=== PATIENT | male | born 1980 | race African-American/Black ===

== ENCOUNTER 2018-08-07 17:56 | Emergency (ER) | payer SELFPAY ==
[2018-08-07] MEDS ORDERED: KETOROLAC TROMETHAMINE 60 MG/2 ML SDV IM ONE (18:53)
--- NOTE | 2018-08-07 18:58 | ER Document Report ---
ED General - General Chief Complaint: Swelling Stated Complaint: SWOLLEN HAND AND FOOT/ARM NUMBNESS Time Seen by Provider: 08/07/18 18:47 Information source: Patient Notes: Chief complaint: Right hand pain History of complain:( obtained from----patient) 37 years old male eats lots of chocolate, presents today with pain over the right metacarpophalangeal joint particularly the middle and also right big toe pain and swelling for the last few days. Denies any fever chills or other constitutional symptoms Onset: As above Duration: Last few days Severity: Mild to moderate Quality: Achy Context: Unknown Exacerbating factor and relieving factors: None REVIEW OF SYSTEMS: CONSTITUTIONAL : Denies fever, chills, or sweats. Denies recent illness. EENT: Denies eye, ear, throat, or mouth pain or symptoms. Denies nasal or sinus congestion or discharge. Denies throat, tongue, or mouth swelling or difficulty swallowing. CARDIOVASCULAR: Denies chest pain. Denies palpitations or racing or irregular heart beat. Denies ankle edema. RESPIRATORY: Denies cough, cold, or chest congestion. Denies shortness of breath, difficulty breathing, or wheezing. GASTROINTESTINAL: Denies distention. Denies nausea, vomiting, or diarrhea. Denies blood in vomitus, stools, or per rectum. Denies black, tarry stools. Denies constipation. GENITOURINARY: Denies difficulty urinating, painful urination, burning, mikal quency, blood in urine, or discharge. FEMALE GENITOURINARY: Denies vaginal bleeding, heavy or abnormal periods, irregular periods. Denies vaginal discharge or odor. MUSCULOSKELETAL: Denies back or neck pain or stiffness. Denies joint pain or swelling. SKIN: Denies rash, lesions or sores. HEMATOLOGIC : Denies easy bruising or bleeding. LYMPHATIC: Denies swollen, enlarged glands. NEUROLOGICAL: Denies confusion or altered mental status. Denies passing out or loss of consciousness. Denies dizziness or lightheadedness. Denies headache. Denies weakness or paralysis or loss of use of either side. Denies problems with gait or speech. Denies sensory loss, numbness, or tingling. Denies seizures. PSYCHIATRIC: Denies anxiety or stress. Denies depression, suicidal ideation, or homicidal ideation. ALL OTHER SYSTEMS REVIEWED AND NEGATIVE. PHYSICAL EXAMINATION: GENERAL: Well-appearing, well-nourished and in no acute distress. HEAD: Atraumatic, normocephalic. EYES: Pupils equal round and reactive to light, extraocular movements intact, conjunctiva are normal. Examination of genitals-deferred Musculoskeletal: Normal range of motion, no pitting or edema. No cyanosis. Examination of the right hand the middle metacarpophalangeal joint shows swelling warm and tender to touch. Right foot metatarsophalangeal joints show slight swelling. And is warm to touch. SKIN: Warm, Dry, normal turgor, no rashes or lesions noted. Dictation was performed using [employer] voice recognition software TRAVEL OUTSIDE OF THE [place] IN LAST 30 DAYS: No - HPI Notes: Dictated - Related Data Allergies/Adverse Reactions: No Known Allergies Allergy (Verified 08/07/18 18:47) Past Medical History - Social History Smoking Status: Never Smoker Frequency of alcohol use: None Drug Abuse: None Lives with: Family Family History: Reviewed & Not Pertinent Patient has suicidal ideation: No Patient has homicidal ideation: No Renal/ Medical History: Denies: Hx Peritoneal Dialysis Review of Systems - Review of Systems Notes: Dictated Physical Exam - Vital signs Vitals: Temp Pulse Resp BP Pulse Ox 98.4 F 66 14 154/83 H 100 08/07/18 18:09 08/07/18 18:09 08/07/18 18:09 08/07/18 18:09 08/07/18 18:09 - Notes Notes: Dictated Course - Re-evaluation Re-evalutation: 08/07/18 18:55 He was explained what his gout - Vital Signs Vital signs: Temp Pulse Resp BP Pulse Ox 98.4 F 66 14 154/83 H 100 08/07/18 18:09 08/07/18 18:09 08/07/18 18:09 08/07/18 18:09 08/07/18 18:09 Discharge - Discharge Clinical Impression: Gout attack Qualifiers: Gout site: hand Gout etiology: unspecified cause Laterality: right Qualified Code(s): M10.9 - Gout, unspecified Condition: Fair Disposition: HOME, SELF-CARE Instructions: Gout Diet ([facility]), Gout ([facility]) Prescriptions: Naproxen 500 mg PO BID #10 tablet Prednisone 10 mg PO ASDIR PRN 6 Days #1 tab.ds.pk PRN Reason:
[2018-08-07 19:30] VITALS: BP 138/86
== END 2018-08-07 19:30 | disposition home or self-care (01) ==
LOC: ER 17:56
DX: M10.9 Gout, unspecified (principal)
CPT/HCPCS: 99283

== ENCOUNTER 2018-10-24 13:44 | Emergency (ER) | payer SELFPAY ==
[2018-10-24] MEDS ORDERED: DIPH/PERTUSS(ACELL)/TETANUS VAC/PF 0.5 ML SYR (>=10YO) IM ONE (14:53)
--- NOTE | 2018-10-24 15:30 | ER Document Report ---
HPI - HPI Time Seen by Provider: 10/24/18 14:27 Pain Level: 4 Notes: Patient is a 38-year-old male presenting to the emergency department with request for updated tetanus vaccination. 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 Patient states that 1 of these occurred today and 1 of these occurred yesterday. He is also requesting that we check his glucose because he is concerned he may be diabetic. Patient has no complaints of excessive thirst or excessive urination and has no family history of diabetes. - EENT EENT: DENIES: Sore Throat, Ear Pain, Eye problems - NEURO Neurology: DENIES: Headache, Weakness, Vision blurred, Dizzinesss / Vertigo - CARDIOVASCULAR Cardiovascular: DENIES: Chest pain - RESPIRATORY Respiratory: DENIES: Trouble Breathing, Coughing - GASTROINTESTINAL Gastrointestinal: DENIES: Abdominal Pain, Black / Bloody Stools - URINARY Urinary: DENIES: Dysuria, Urgency - REPRODUCTIVE Reproductive: DENIES: :, Postmenopausal, Abnormal bleeding / discharge - MUSCULOSKELETAL Musculoskeletal: REPORTS: Extremity pain - bilateral hand pain Past Medical History - General Information source: Patient - Social History Smoking Status: Never Smoker Frequency of alcohol use: None Drug Abuse: None Family History: Reviewed & Not Pertinent Patient has suicidal ideation: No Patient has homicidal ideation: No - Medical History Medical History: Negative Renal/ Medical History: Denies: Hx Peritoneal Dialysis Surgical Hx: Negative - Immunizations Hx Diphtheria, Pertussis, Tetanus Vaccination: Yes Vertical Provider Document - CONSTITUTIONAL Notes: PHYSICAL EXAMINATION: GENERAL: Well-appearing, well-nourished and in no acute distress. HEAD: Atraumatic, normocephalic. EYES: Pupils equal round extraocular movements intact, conjunctiva are normal. ENT: Nares patent NECK: Normal range of motion LUNGS: No respiratory distress Musculoskeletal: Normal range of motion NEUROLOGICAL: Normal speech, normal gait. PSYCH: Normal mood, normal affect. SKIN: Warm, Dry, normal turgor, no rashes or lesions noted. Very superficial puncture wounds noted to both of patient's hands on the palm. There is one puncture wound on each side and again this is very superficial. There is no surrounding erythema. - INFECTION CONTROL TRAVEL OUTSIDE OF THE [place] IN LAST 30 DAYS: No Course - Re-evaluation Re-evalutation: Patient's Tdap was updated. Patient did have a Accu-Chek done per patient's request and this was found to be within normal limits. Patient will be discharged home in stable condition. He does understand ED return precautions to include any signs of infection at the puncture wounds on his hand. - Vital Signs Vital signs: Temp Pulse Resp BP Pulse Ox 98.1 F 74 18 145/82 H 98 10/24/18 14:04 10/24/18 14:04 10/24/18 14:04 10/24/18 14:04 10/24/18 14:04 Discharge - Discharge Clinical Impression: Need for Tdap vaccination Condition: Stable Disposition: HOME, SELF-CARE Additional Instructions: Your tetanus shot was updated today. Please decrease your salt intake and increase your water intake. This may help with your swelling in your hands and feet. Please consider following up with the [facility] and keep a close watch on your blood pressure. Forms: Return to Work Referrals: [facility] [Provider Group] - Follow up as needed
[2018-10-24 16:18] VITALS: BP 136/89
== END 2018-10-24 16:20 | disposition home or self-care (01) ==
LOC: ER 13:44
DX: Z23 Encounter for immunization (principal); R63.1 Polydipsia; M79.641 Pain in right hand; M79.642 Pain in left hand
CPT/HCPCS: 82962; 90471; 90715; 99283

== ENCOUNTER 2019-02-10 10:00 | Emergency (ER) | payer OTHER ==
[2019-02-10 10:04] VITALS: BP 137/73
[2019-02-10] MEDS ORDERED: IBUPROFEN 800 MG TABLET PO ONE (10:20)
[2019-02-10] MEDS ORDERED: PENICILLIN V POTASSIUM 500 MG TABLET PO ONE (10:20)
--- NOTE | 2019-02-10 10:22 | ER Document Report ---
HPI - HPI Patient complains to provider of: dental pain Time Seen by Provider: 02/10/19 10:13 Onset: Other - 4 days Onset/Duration: Persistent Quality of pain: Achy Pain Level: 5 Context: Patient presents complaining of dental pain to left lower jaw for the past 4 days. Patient complains of some swelling to the left jaw. No fever. No difficulty breathing or swallowing. Associated Symptoms: Other - dental pain. denies: Earache, Fever, Headache Exacerbated by: Denies Relieved by: Denies Similar symptoms previously: No Recently seen / treated by doctor: No - ROS ROS below otherwise negative: Yes Systems Reviewed and Negative: Yes All other systems reviewed and negative - CONSTITUTIONAL Constitutional: DENIES: Fever, Chills - EENT EENT: DENIES: Sore Throat, Ear Pain Notes: dental pain - NEURO Neurology: REPORTS: Headache. DENIES: Vision blurred - RESPIRATORY Respiratory: DENIES: Trouble Breathing, Coughing - GASTROINTESTINAL Gastrointestinal: DENIES: Patient vomiting - DERM Skin Color: Normal Skin Problems: None Past Medical History - General Information source: Patient - Social History Smoking Status: Never Smoker Chew tobacco use (# tins/day): No Frequency of alcohol use: Occasional Drug Abuse: None Occupation: construction Lives with: Family Family History: Reviewed & Not Pertinent Patient has suicidal ideation: No Patient has homicidal ideation: No - Medical History Medical History: Negative Renal/ Medical History: Denies: Hx Peritoneal Dialysis Past Surgical History: Reports: Hx Orthopedic Surgery - knee surgeries - Immunizations Hx Diphtheria, Pertussis, Tetanus Vaccination: Yes Vertical Provider Document - CONSTITUTIONAL Agree With Documented VS: Yes Exam Limitations: No Limitations General Appearance: WD/WN, No Apparent Distress - INFECTION CONTROL TRAVEL OUTSIDE OF THE [place] IN LAST 30 DAYS: No - HEENT HEENT: Atraumatic, Normocephalic Mouth Diagram: 1 - dental fracture, tenderness, no sublingual or submental swelling, no drainable abscess - NECK Neck: Normal Inspection, Supple. negative: Lymphadenopathy-Left, Lymphadenopathy-Right - RESPIRATORY Respiratory: Breath Sounds Normal, No Respiratory Distress - CARDIOVASCULAR Cardiovascular: Regular Rate, Regular Rhythm - MUSCULOSKELETAL/EXTREMETIES Musculoskeletal/Extremeties: MAEW - NEURO Level of Consciousness: Awake, Alert, Appropriate Motor/Sensory: No Motor Deficit - DERM Integumentary: Warm, Dry, No Rash Course - Vital Signs Vital signs: Temp Pulse Resp BP Pulse Ox 98.4 F 72 17 137/73 H 97 02/10/19 10:03 02/10/19 10:03 02/10/19 10:03 02/10/19 10:03 02/10/19 10:03 Discharge - Discharge Clinical Impression: Toothache Condition: Stable Disposition: HOME, SELF-CARE Instructions: Penicillin V K ([facility]), Toothache ([facility]) Additional Instructions: Return immediately for any new or worsening symptoms Followup with your dental care provider, call tomorrow to make a followup appointment Prescriptions: Acetaminophen with Codeine [Tylenol #3 Tablet] 1 each PO Q6HP PRN #12 tablet PRN Reason: Naproxen [Naprosyn 250 Nmg Tablet] 1 tab PO BID #14 tablet Penicillin V Potassium [Penicillin Vk 500 mg Tablet] 500 mg PO BID #20 tablet Referrals: [facility] [Provider Group] - Follow up as needed
== END 2019-02-10 10:35 | disposition home or self-care (01) ==
LOC: ER 10:00
DX: K08.89 Other specified disorders of teeth and supporting structures (principal); R68.84 Jaw pain; R22.0 Localized swelling, mass and lump, head; R51 Headache
CPT/HCPCS: 99282